=== PATIENT | female | born 2000 | race Caucasian/White ===

== ENCOUNTER 2021-06-28 11:03 | Outpatient (CLI) | payer OTHER ==
[~2021-06-28 11:03] MED LIST: BIRTH CONTROL PO; IBUPROFEN800 MG PO; KEFLEX CAP 500500 MG PO; NORCO 7.5-3251 EACH PO; VITAMIN C 500500 MG PO
== END 2021-06-28 12:51 | disposition home or self-care (01) ==
LOC: GENOP 11:03
PROVIDERS: Obstetrics & Gynecology
DX: O47.1 False labor at or after 37 completed weeks of gestation (principal); Z3A.37 37 weeks gestation of pregnancy; O34.83 Maternal care for other abnormalities of pelvic organs, third trimester; N83.202 Unspecified ovarian cyst, left side; N83.201 Unspecified ovarian cyst, right side
CPT/HCPCS: 80307; 81001; G0463